=== PATIENT | female | born 2000 | race Hispanic/Latino ===

== ENCOUNTER 2019-04-17 09:37 | Emergency (ER) | payer SELFPAY ==
--- NOTE | 2019-04-17 12:41 | RAD ---
RIGHT ANKLE 3 VIEWS: DATE: 04/17/2019. FINDINGS: Some mild soft tissue swelling is present, but no fracture was seen. The joint surfaces are normal i n appearance. A prominent calcaneal spur was noted. IMPRESSION: No acute finding. POS: [facility]
== END 2019-04-17 10:42 | disposition home or self-care (01) ==
LOC: BURERS 09:37
DX: S93.401A Sprain of unspecified ligament of right ankle, initial encounter (principal); F17.290 Nicotine dependence, other tobacco product, uncomplicated; X50.1XXA Overexertion from prolonged static or awkward postures, initial encounter